=== PATIENT | female | born 1975 | race Caucasian/White ===

== ENCOUNTER 2023-12-27 02:20 | Emergency (ER) | payer BC ==
[2023-12-27 02:39] VITALS: TEMP 97.7
[2023-12-27] MEDS ORDERED: Zofran 4 MG/2 ML VIAL ONE (02:54)
[2023-12-27] MEDS ORDERED: Sodium Chloride 0.9% 1000 ML 1,000 ML ONE (02:54)
[2023-12-27] MEDS ORDERED: TORAdol 30 mg Injection ONE (02:54)
[2023-12-27] MEDS: TORAdol 30 mg Injection IV ONE (02:58)
[2023-12-27] MEDS: Zofran 4 MG/2 ML VIAL IV ONE (02:58)
[2023-12-27] MEDS: Sodium Chloride 0.9% 1000 ML 1,000 ML IV STA (02:59)
[2023-12-27 03:04] VITALS: RESP 16
[2023-12-27 03:07] LABS: Absolute Neutrophil Ct (ANC) 3.78 x10^3/uL (1.56-6.13); BASOPHIL % 0.6 % (0.1-1.2); Basophil (Absolute #) 0.04 x10^3/uL (0.01-0.08); Eosinophil % 2.9 % (0.7-5.8); Hematocrit 39.7 % (34.1-44.9); Hemoglobin 13.4 g/dL (11.2-15.7); IMMATURE GRAN # 0.02 x10^3u/L (0.001-0.031); IMMATURE GRAN % 0.3 % (0.001-0.429); Lymphocyte (Absolute #) 2.34 x10^3/uL (1.18-3.74); Lymphocytes % 33.9 % (19.3-51.7); Mean Cell Volume 88.2 fL (79.4-94.8); Mean Corpuscular Hemoglobin 29.8 pg (25.6-32.2); Mean Corpuscular Hgb Concent. 33.8 g/dL (32.2-35.5); Mean Platelet Volume 10.2 fL (9.4-12.3); Monocyte (Absolute #) 0.53 x10^3/uL (0.24-0.86); Monocytes % 7.7 % (4.7-12.5); Neutrophil % 54.6 % (34.0-71.1); Platelet Count 217 x10^3/uL (182-369); Red Cell Distribution Width 12.4 % (11.7-14.4); White Blood Count 6.9 x10^3/uL (3.98-10.04)
[2023-12-27 03:20] LABS: ALBUMIN 3.9 g/dL (3.5-5.0); ANION GAP 8.5 MEQ/L (5-15); BILIRUBIN,TOTAL 0.4 mg/dL (0.2-1.3); Calcium 8.9 mg/dL (8.4-10.2); Creatinine 1 0.73 mg/dL (0.52-1.04); EST GLOMERULAR FILTRATION RATE 100.8 ML/MIN; Potassium 3.4 mmol/L (3.5-5.1); Total Protein 6.7 g/dL (6.3-8.2)
--- NOTE | 2023-12-27 03:27 | ERPHSYRPT ---
- History of Present Illness Historian: patient Exam Limitations: no limitations Patient Subjective Stated Complaint: left sided back pain radiating around to abd Triage Nursing Assessment: pt ambulated into ER holding her back, spouse at bedside. Pt c/o left lower back pain which started about an hour ago and woke her up from sleep. Pt's pain radiates around to the front of abd to LLQ. Pt is nauseous, denies any vomiting. Lungs clear, abd soft with hypoactive bs x4 quad, tender to LLQ. Physician History: Patient is a 48-year-old female with left costovertebral angle pain started approxione 30 this morning which radiates to her left abdomen and left lower quadrant. Pain is severe on scale and described as sharp. She has had nausea without vomiting. Hematuria and dysuria also denied. She has never had this pain before. Past medical history includes cholecystectomy/tonsils adenoids/bilateral tubal ligation//thyroidectomy. Timing/Duration: other (1:30 AM) Activities at Onset: sleep Quality: sharpness Abdominal Pain Onset Location: other (Left costovertebral angle with radiation to left abdomen and left lower quadrant) Pain Radiation: other (Left abdomen left lower quadrant) Severity of Pain-Max: severe Severity of Pain-Current: severe Modifying Factors: Improves With: nothing Associated Symptoms: denies symptoms, nausea Previous symptoms: no prior history Allergies/Adverse Reactions: No Known Drug Allergies Allergy (Unverified 12/27/23 02:49) Home Medications: Ezetimibe 10 mg [Zetia 10 MG] 1 tab PO DAILY 12/27/23 [History] Fluoxetine HCl [Prozac] 20 mg PO DAILY 12/27/23 [History] Levothyroxine Sodium 125 mcg PO DAILY 12/27/23 [History] Hx Tetanus, Diphtheria Vaccination/Date Given: Yes Hx Influenza Vaccination/Date Given: No Hx Pneumococcal Vaccination/Date Given: No Travel Risk - International Travel Have you traveled outside of the country in past 3 weeks: No - Emerging Infectious Disease Are you exhibiting symptoms associated with any current EIDs: Yes Symptoms: Abdominal Pain - Review of Systems Constitutional: No Symptoms Eyes: No Symptoms Ears, Nose, & Throat: No Symptoms Respiratory: No Symptoms Cardiac: No Symptoms Abdominal/Gastrointestinal: No Symptoms, Abdominal Pain, Nausea Genitourinary Symptoms: No Symptoms, Flank Pain Musculoskeletal: No Symptoms Skin: No Symptoms Neurological: No Symptoms Psychological: No Symptoms Endocrine: No Symptoms Hematologic/Lymphatic: No Symptoms Immunological/Allergic: No Symptoms - Past Medical History Pertinent Past Medical History: Yes Neurological History: No Pertinent History ENT History: No Pertinent History Cardiac History: No Pertinent History Respiratory History: No Pertinent History Endocrine Medical History: No Pertinent History Musculoskeletal History: No Pertinent History GI Medical History: Gallbladder Disease History: No Pertinent History Psycho-Social History: No Pertinent History Female Reproductive Disorders: No Pertinent History - Past Surgical History Past Surgical History: Yes Cardiac: No Pertinent History Respiratory: No Pertinent History Gastrointestinal: Cholecystectomy Genitourinary: No Pertinent History Musculoskeletal: No Pertinent History Female Surgical History: Section, Tubal Ligation Other Surgical History: thyroidectomy - Female History Hx Now: No - Social History Smoking Status: Never smoker Exposure to second hand smoke: No Drug Use: none - Social Determinants of Health Will the patient participate in the screening: Yes Do you worry about a steady place to live?: No Do you have any problems with any of the following?: No known problems In the past 12 months,have you had to go without utilities?: No Transportation Issues: No Has anyone in your support network made you feel unsafe?: No Have you or anyone in your house had to go without enough: No - Nursing Vital Signs Nursing Vital Signs: Initial Vital Signs Temperature 97.7 F 12/27/23 02:38 Pulse Rate 87 12/27/23 02:38 Respiratory Rate 18 12/27/23 02:38 Blood Pressure 182/116 12/27/23 02:38 O2 Sat by Pulse Oximetry 99 12/27/23 02:38 Pain Scale Pain Intensity [] 10 Pain Intensity 1 Hypertensive - Physical Exam General Appearance: mild distress (Mild distress due to pain) Eye Exam: PERRL/EOMI, eyes nml inspection Ears, Nose, Throat Exam: normal ENT inspection, TMs normal Neck Exam: normal inspection, supple, No meningismus, No Brudzinski, No Kernig's Respiratory Exam: normal breath sounds, lungs clear Cardiovascular Exam: regular rate/rhythm, normal heart sounds, normal peripheral pulses, capillary refill <2 sec, No murmur Gastrointestinal/Abdomen Exam: soft, normal bowel sounds, tenderness (Mild left lower quadrant tenderness palpation without guarding or rebound) Back Exam: CVA tenderness (Moderate left costovertebral angle tenderness to palpation) Extremity Exam: normal inspection, normal range of motion Neurologic Exam: alert, oriented x 3, cooperative, director social welfare II-XII nml as tested, normal mood/affect, sensation nml Skin Exam: normal color, warm, dry Lymphatic Exam: No adenopathy SpO2 Interpretation: normal SpO2: 99 O2 Delivery: Room Air - Course Nursing assessment & vital signs reviewed: Yes - CT Exams Abdomen/Pelvis CT Interpretation: Tele-radiologist Report (3.3mm left ureteral vesicle junction stone) Ordered Tests: Active Orders 24 hr Category Date Time Status IV Insertion STAT Care 12/27/23 02:55 Active ABDOMEN AND PELVIS W/0 CONTRAS [CT] Stat Exams 12/27/23 03:11 Completed CBC W DIFF Stat Lab 12/27/23 03:00 Completed CMP Stat Lab 12/27/23 03:00 Completed UA W/RFX UR CULTURE Stat Lab 12/27/23 02:49 Completed Medication Summary Discontinued Medications Generic Name Dose Route Start Last Admin Trade Name Freq PRN Reason Stop Dose Admin Fentanyl Citrate 50 mcg 12/27/23 03:58 12/27/23 04:01 Fentanyl Citrate 100 Mcg/2 Ml* Vial IV 12/27/23 03:59 50 mcg STAT ONE Administration Fentanyl Citrate Confirm 12/27/23 03:59 Fentanyl Citrate 100 Mcg/2 Ml* Vial Administered 12/27/23 04:00 Dose 100 mcg .ROUTE .STK-MED ONE Fentanyl Citrate 50 mcg 12/27/23 04:35 Fentanyl Citrate 100 Mcg/2 Ml* Vial IV 12/27/23 04:36 STAT ONE Sodium Chloride Confirm 12/27/23 02:54 Sodium Chloride 0.9% 1000 Ml Administered 12/27/23 02:55 Dose 1,000 mls @ ud .ROUTE .STK-MED ONE Sodium Chloride 1,000 mls @ 999 mls/hr 12/27/23 02:55 12/27/23 04:02 Sodium Chloride 0.9% 1000 Ml IV 12/27/23 03:55 Infused .Q1H1M STA Infusion Ketorolac Tromethamine 30 mg 12/27/23 02:54 12/27/23 02:58 Ketorolac Tromethamine 30 Mg/Ml Inj IV 12/27/23 02:55 30 mg STAT ONE Administration Ketorolac Tromethamine Confirm 12/27/23 02:54 Ketorolac Tromethamine 30 Mg/Ml Inj Administered 12/27/23 02:55 Dose 30 mg .ROUTE .STK-MED ONE Ondansetron HCl 4 mg 12/27/23 02:54 12/27/23 02:58 Ondansetron Hcl 4 Mg/2 Ml Vial IV 12/27/23 02:55 4 mg STAT ONE Administration Ondansetron HCl Confirm 12/27/23 02:54 Ondansetron Hcl 4 Mg/2 Ml Vial Administered 12/27/23 02:55 Dose 4 mg .ROUTE .STK-MED ONE Lab/Rad Data: Laboratory Result Diagrams 12/27/23 03:00 12/27/23 03:00 Laboratory Results 12/27/23 12/27/23 12/27/23 Range/Units 03:00 03:00 02:49 WBC 6.9 (3.98-10.04) x10^3/uL RBC 4.50 (3.93-5.22) x10^6/uL Hgb 13.4 (11.2-15.7) g/dL Hct 39.7 (34.1-44.9) % MCV 88.2 (79.4-94.8) fL MCH 29.8 (25.6-32.2) pg MCHC 33.8 (32.2-35.5) g/dL RDW 12.4 (11.7-14.4) % Plt Count 217 (182-369) x10^3/uL MPV 10.2 (9.4-12.3) fL Gran % 54.6 (34.0-71.1) % Immature Gran % (Auto) 0.3 (0.001-0.429) % Nucleat RBC Rel Count 0.0 (0.00-0.2) % Eos # (Auto) 0.20 (0.04-0.36) x10^3/uL Immature Gran # (Auto) 0.02 (0.001-0.031) x10^3u/L Absolute Lymphs (auto) 2.34 (1.18-3.74) x10^3/uL Absolute Monos (auto) 0.53 (0.24-0.86) x10^3/uL Absolute Nucleated RBC 0.00 (0.00-0.012) x10^3u/L Lymphocytes % 33.9 (19.3-51.7) % Monocytes % 7.7 (4.7-12.5) % Eosinophils % 2.9 (0.7-5.8) % Basophils % 0.6 (0.1-1.2) % Absolute Granulocytes 3.78 (1.56-6.13) x10^3/uL Basophils # 0.04 (0.01-0.08) x10^3/uL Sodium 139 (135-145) mmol/L Potassium 3.4 L (3.5-5.1) mmol/L Chloride 105 (98-107) mmol/L Carbon Dioxide 29 (22-30) mmol/L Anion Gap 8.5 (5-15) MEQ/L BUN 15 (7-17) mg/dL Creatinine 0.73 (0.52-1.04) mg/dL Estimated GFR 100.8 ML/MIN Glucose 123 H (74-106) mg/dL Calcium 8.9 (8.4-10.2) mg/dL Total Bilirubin 0.40 (0.2-1.3) mg/dL AST 27 (14-36) U/L ALT 25 (0-35) U/L Alkaline Phosphatase 53 (38-126) U/L Serum Total Protein 6.7 (6.3-8.2) g/dL Albumin 3.9 (3.5-5.0) g/dL Urine Color Yellow (Yellow) Urine Appearance Clear (Clear) Urine pH 6.0 (4.6-8.0) Ur Specific [place] 1.020 (1.005-1.030) Urine Protein Negative (Negative) Urine Glucose (UA) Negative (Negative) mg/dL Urine Ketones Negative (Negative) Urine Blood Small A (Negative) Urine Nitrite Negative (Negative) Urine Bilirubin Negative (Negative) Urine Urobilinogen 0.2 (0.2) mg/dL Ur Leukocyte Esterase Negative (Negative) U Hyaline Cast (Auto) NONE SEEN (0-2) /LPF Urine Microscopic RBC 6-10 A (0-5) /HPF Urine Microscopic WBC 0-2 (0-5) /HPF Ur Epithelial Cells None Seen (None Seen) /HPF Urine Bacteria None Seen (None Seen) /HPF Urine Culture Reflexed NO (NO) Within normal limits - Progress Progress: improved Progress Note: 12/27/23 04:39 Nursing note and vital signs reviewed. No food or housing insecurity noted. All lab work thoroughly reviewed and shared with patient/. CT of the abdomen pelvis without contrast result thoroughly reviewed and shared with patient/. Patient given 1 L normal saline bolus/30 g IV Toradol/forms IV Zofran/50 mcg IV fentanyl x 2 with improvement in pain. She has a 3.3 left UVJ stone with moderate hydronephrosis. Since the stone is below 5 mm, patient should pass the stone. She is advised to strain all urine, follow-up with her family MD, and return to ER for increasing pain or temperature greater 100.5. Patient afebrile without evidence of urinary tract infection while she was in the ER. Counseled pt/family regarding: lab results, diagnosis, need for follow-up, rad results - Departure Departure Disposition: Home Clinical Impression: Ureterolithiasis Condition: Stable Critical Care Time: No Referrals: KELIN VILLASENOR [Primary Care Provider] - Follow up/PCP as directed Instructions: Kidney stones in adults Additional Instructions: Strain all urine Plenty of fluids Pain meds as needed Please use a stool softener with pain meds Return to ER for increasing pain or temperature greater 100.5 Follow-up with your family MD Prescriptions: Hydrocodone/Acetaminophen [Hydrocodone-Acetamin 5-325 mg] 1 tab PO Q4HPRN PRN #7 tablet MDD 6 PRN Reason: Pain
[2023-12-27 03:28] LABS: Bacteria None Seen /HPF (None Seen); Epithelial Cells None Seen /HPF (None Seen); Hyaline Casts NONE SEEN /LPF (0-2); WBC 0-2 /HPF (0-5)
[2023-12-27 03:29] LABS: Appearance Clear (Clear)
[2023-12-27 03:30] LABS: ADD URINE CULTURE? NO (NO); Bilirubin Negative (Negative); Blood Small (Negative); Glucose, Urine Negative (Negative); Ketones Negative (Negative); Leukocyte Esterase Negative (Negative); Nitrite Negative (Negative); Protein,Urine Dip Negative (Negative); Urobilinogen 0.2 mg/dL (0.2)
[2023-12-27] MEDS ORDERED: SUBLIMAZE 100 MCG/2 ML ONE ×2 (03:59→04:37)
[2023-12-27] MEDS: SUBLIMAZE 100 MCG/2 ML IV ONE ×2 (04:01→04:39)
--- NOTE | 2023-12-27 04:24 | XRAY ---
CLINICAL HISTORY: left flank pain COMPARISON: None. TECHNIQUE: CT of the abdomen and pelvis was performed with axial images as well as sagittal and coronal reconstruction images without intravenous contrast. DLP: 323.06 mGy-cm. One of the following dose reduction techniques were utilized for this exam: Automated exposure control, adjustment of the mA and/or kV according to patient size, use of iterative reconstruction. FINDINGS: Scanned lung bases are grossly unremarkable. The liver is normal in size, morphology and appears unremarkable with no intrahepatic or extrahepatic bile duct dilation. A tiny 3.5 mm calcified granuloma is seen in the hepatic dome. The gall bladder is surgically removed. Unremarkable non-enhanced CT appearance of the spleen, adrenal glands and pancreas. A calculus is seen lodged at the left vesicourteric junction measuring about 3.3 mm causing moderate proximal hydronephrosis and hydroureter. A calculus is also seen in the middle calyceal system measuring 1mm. The right kidney is average in size. No calculi, cysts or hydronephrosis. The average caliber of the right ureter. No suspiciously enlarged mesenteric or retroperitoneal lymph nodes. The small and large bowel loops are of average caliber with no evidence of obstruction. A normal appendix is noted. The urinary bladder is partially filled. Few pelvic phleboli are noted. No gross uterine or adnexal lesions. The aorta is within normal limits. Spondylodegenerative changes of the lumbar spine are most appreciated at L5-S1 level, no lytic or sclerotic spine lesions. IMPRESSION: 1. Left vesicoureteric junction calculus causing moderate proximal hydroureter and hydronephrosis. 2. Left renal calculus. The [facility] was called at [phone] at 3:18 AM [employer], 12/27/2023, and results were verbally communicated to Dr. Idalia Kim. Electronically Signed by: Nawaf Minaya MD. (12/27/2023 04:20:48 EDT)
[2023-12-27 05:03] VITALS: BP 124/82; PULSE 82; O2SAT 94
== END 2023-12-27 05:07 | disposition home or self-care (01) ==
LOC: ED 02:20
DX: N13.2 Hydronephrosis with renal and ureteral calculous obstruction (principal); R10.9 Unspecified abdominal pain; R11.0 Nausea; Z79.891 Long term (current) use of opiate analgesic; Z79.899 Other long term (current) drug therapy
CPT/HCPCS: 36000; 36415; 74176; 80053; 81001; 85025; 96374; 96375; 96376; 99284; J1885; J2405; J3010